=== PATIENT | male | born 1935 | race Caucasian/White ===

== ENCOUNTER 2024-02-27 13:34 | Outpatient (CLI) | payer MEDICARE, SELFPAY ==
--- NOTE | 2024-02-27 13:46 | MM_ITS ---
PROCEDURE INFORMATION: Exam: US Right Breast, Complete MG Bilateral Diagnostic Breast Tomosynthesis Exam date and time: 02/27/2024 1:36 PM Age: 88 years old Clinical indication: Right breast pain, lump and swelling - around the nipple, for 3 weeks. His mother and sister had breast cancer. TECHNIQUE: Imaging protocol: Complete ultrasound of all four quadrants of the right breast and the retroareolar regions, including ultrasound of the axilla when performed. Bilateral Diagnostic tomosynthesis and 2D mammography including computer-aided detection (CAD) when performed. Unilateral or bilateral exam. 3D spot compression in the right CC projection. 2D spot compression in the right MLO projection. COMPARISON: No relevant prior studies available. FINDINGS: MAMMOGRAPHY: Breast mammogram findings: Breast composition: The breasts are almost entirely fatty. Mass: None. Architectural distortion: None. Calcifications: No suspicious calcifications. Asymmetric density: None. Skin thickening: None. Axillary adenopathy: None. Other: In the right subareolar and central breast patchy flame shaped asymmetry over proximally 3.0 cm with interspersed fat. ULTRASOUND: Breast ultrasound findings: Right sonography, all 4 quadrants, retroareolar and axilla. In the right subareolar, minimal flame shaped hypoechoic opacity over proximally 1.3 cm, most compatible with gynecomastia. No other sonographic findings demonstrated. Sonographically unremarkable axillary lymph node. Comparison image of the left subareolar region is unremarkable. IMPRESSION: Findings most compatible with asymmetric right gynecomastia, which corresponds to history of concern related to the right nipple region. Correlate clinically with follow-up imaging if clinically indicated. Further evaluation of a palpable abnormality should be based on clinical grounds regardless of radiographic findings or lack thereof. ASSESSMENT: BI-RADS Category 2: Benign.
== END 2024-02-27 23:59 | disposition home or self-care (01) ==
LOC: RAD 13:35
PROVIDERS: PCP Emergency Medicine; Visit Provider Emergency Medicine
DX: N64.4 Mastodynia (principal); N63.10 Unspecified lump in the right breast, unspecified quadrant
CPT/HCPCS: 76641; 77062; 77066; G0279